=== PATIENT | male | born 1955 | race Caucasian/White ===

== ENCOUNTER 2019-01-15 23:09 | Emergency (ER) | payer MEDICAID ==
[~2019-01-15] VITALS: Ht 172.7 cm; Wt 88.5 kg
[2019-01-15 23:40] VITALS: BP 172/95
== END 2019-01-16 00:32 | disposition home or self-care (01) ==
LOC: ER 23:14
DX: S80.821A Blister (nonthermal), right lower leg, initial encounter (principal); I10 Essential (primary) hypertension; X58.XXXA Exposure to other specified factors, initial encounter; Y93.66 Activity, soccer; Y92.322 Soccer field as the place of occurrence of the external cause; Y99.8 Other external cause status
CPT/HCPCS: 99283; A6403

== ENCOUNTER 2019-01-28 14:10 | Emergency (ER) | payer MEDICAID ==
[~2019-01-28] VITALS: Ht 172.7 cm; Wt 88.9 kg
[2019-01-28 14:17] VITALS: BP 151/74
== END 2019-01-28 16:00 | disposition home or self-care (01) ==
LOC: ER 14:17
DX: M25.512 Pain in left shoulder (principal); I10 Essential (primary) hypertension; W18.39XA Other fall on same level, initial encounter; Y93.66 Activity, soccer; Y92.322 Soccer field as the place of occurrence of the external cause; Y99.8 Other external cause status
CPT/HCPCS: 73030; 99283; A6403